=== PATIENT | female | born 1980 | race Caucasian/White ===

== ENCOUNTER 2017-07-31 03:49 | Emergency (ER) | END 2017-07-31 06:00 | disposition home or self-care (01) ==

== ENCOUNTER 2018-11-21 15:16 | Outpatient (CLI) | payer OTHER ==
[~2018-11-21 15:16] MED LIST: CYCL10TA7 PO; HYDR-4011 PO; IBUP-1542 PO
--- NOTE | 2018-11-21 15:33 | PN ---
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
--- NOTE | 2018-11-21 16:40 | TRIAGE ---
OB Triage Datetime Report Generated by CPN: 11/21/2018 16:40 Datetime: 11/21/2018 16:38 Stage of : OB Triage Maternal Assessment Level of Consciousness: Keenly Alert, Responsive DTR's/Clonus: DTRs 1+ Headache: Denies Breath Sounds, Left: Clear and Equal Breath Sounds, Right: Clear and Equal Nausea/Vomiting: Denies RUQ Epigastric Pain: Denies Labor Evaluation Frequency: NONE Monitor Mode: External Resting Tone Stebbins: Relaxed Heart Rate FHR Baseline Rate: 135 Monitor Mode: External US Variability: Moderate 6-25 bpm Accelerations: 10X10 Decelerations: None Category: Category I Pain Assessment Pain Scale: 0 Pain Presence: None/Denies Pain Type: N/A Pain Goal: 3 Vaginal Exam Membrane Status: Intact Datetime: 11/21/2018 15:40 Maternal Assessment Level of Consciousness: Keenly Alert, Responsive DTR's/Clonus: DTRs 1+ Headache: Denies Blurred Vision: No Respiratory Effort: Unlabored Breath Sounds, Left: Clear and Equal Breath Sounds, Right: Clear and Equal Nausea/Vomiting: Denies RUQ Epigastric Pain: Denies Facial Edema: None Labor Evaluation Frequency: NONE Monitor Mode: External Resting Tone Stebbins: Relaxed Heart Rate FHR Baseline Rate: 135 Monitor Mode: External US Variability: Moderate 6-25 bpm Accelerations: 10X10 Decelerations: None Category: Category I Pain Assessment Pain Scale: 0 Pain Presence: None/Denies Pain Type: N/A Pain Goal: 3 Vaginal Exam Membrane Status: Intact Datetime: 11/21/2018 15:30 Stage of : OB Triage Datetime: 11/21/2018 15:25 Assessment Type: Triage Maternal Assessment Level of Consciousness: Keenly Alert, Responsive DTR's/Clonus: DTRs 2+; No Clonus Headache: Denies Blurred Vision: No Respiratory Effort: Unlabored; Regular Rhythm; Equal Expansion Breath Sounds, Left: Clear and Equal Breath Sounds, Right: Clear and Equal Nausea/Vomiting: Denies RUQ Epigastric Pain: Denies Lower Extremities Edema: None Degree: None Upper Extremities Edema: None Degree: None Facial Edema: None Fall Risk Assessment History of Falling: (0) No Secondary Diagnosis: (0) No Ambulatory Aid: (0) Bedrest/Nurse Assist IV Therapy: (0) No Gait: (0) Normal/Bedrest/Immobile Mental Status: (0) Oriented to Own Ability Fall Score: 0 Fall Risk Score Definition: No Risk: No action required Datetime: 11/21/2018 15:15 Time of Arrival: 11/21/2018 15:15 EGA: 24.4 Arrived By: Ambulatory Arrived From: Office Chief Complaint: PT CAME IN FROM OFFICE DUE TO DIZZINESS AND SOB Movement: Present Contractions: Denies/Absent Rupture of Membranes: Denies Vaginal Discharge: Denies Recent Sexual Intercouse: Denies Abdominal Trauma: Not Applicable Additional Patient Complaints: NONE Time Provider Notified: 11/21/2018 15:30 Provider Notified: NICK Initial Plan: NST AND BPP
== END 2018-11-21 16:45 | disposition home or self-care (01) ==
LOC: OBT 15:16 → L-D 15:17 → OBT 16:45
PROVIDERS: ATTEND Obstetrics & Gynecology
DX: O26.892 Other specified pregnancy related conditions, second trimester (principal); O09.522 Supervision of elderly multigravida, second trimester; Z3A.24 24 weeks gestation of pregnancy
CPT/HCPCS: 76818; Z7500; G0463

== ENCOUNTER 2019-02-28 12:43 | Outpatient (CLI) | payer OTHER ==
[~2019-02-28] VITALS: Ht 165.1 cm; Wt 66.3 kg
[~2019-02-28 12:43] MED LIST changes: -CYCL10TA7 PO; -HYDR-4011 PO
[2019-02-28 13:08] VITALS: Ht 165.1 cm; Wt 66.3 kg
== END 2019-02-28 18:40 | disposition home or self-care (01) ==
LOC: OBT 12:43 → L-D 12:47 → OBT 18:40
PROVIDERS: ATTEND Obstetrics & Gynecology
DX: O62.9 Abnormality of forces of labor, unspecified (principal); Z3A.38 38 weeks gestation of pregnancy
CPT/HCPCS: 76818; Z7500; G0463